=== PATIENT | male | born 1980 | race Caucasian/White ===

== ENCOUNTER 2018-11-10 11:57 | Emergency (ER) | payer OTHER ==
[2018-11-10 12:00] VITALS: BP 139/82; PULSE 82; TEMP 97.3; BMI 35.4
[2018-11-10] MEDS ORDERED: AZITHROMYCIN 250 MG TABLET PO ONE (12:26)
[2018-11-10 12:30] LABS: URINE APPEARANCE CLEAR; URINE BILIRUBIN NEGATIVE (<2.0 mg/dL); URINE COLOR YELLOW; URINE GLUCOSE (UA) NEGATIVE (NEGATIVE); URINE KETONE NEGATIVE (NEGATIVE); URINE LEUK ESTERASE 1+ (NEGATIVE); URINE NITRITE NEGATIVE (NEGATIVE); URINE PROTEIN NEGATIVE (NEGATIVE); URINE UROBILINOGEN NEGATIVE mg/dL (0.2-1.0)
[2018-11-10] MEDS ORDERED: AZITHROMYCIN 250 MG TABLET ONE (12:35)
--- NOTE | 2018-11-10 12:38 | PDOC ---
History of Present Illness - General Chief Complaint: Urinary Problem Stated Complaint: GROIN PAIN Time Seen by Provider: 11/10/18 12:05 History Source: Patient - History of Present Illness Timing/Duration: reports: other Past History - Past Medical History Allergies/Adverse Reactions: Allergies Allergy/AdvReac Type Severity Reaction Status Date / Time No Known Allergies Allergy Verified 11/10/18 12:00 Home Medications: Ambulatory Orders Azithromycin [Zithromax] 250 mg PO DAILY #4 12/03/12 No Home Medications 0 dose .ROUTE UTDICT 12/03/12 COPD: No - Surgical History Appendectomy: Yes - Suicide/Smoking/Psychosocial Hx Smoking Status: No Smoking History: Never smoked Number of Cigarettes Smoked Daily: 0 Review of Systems - Review of Systems Constitutional: No: Chills, Fever : Yes: Burning, Dysuria, Discharge. No: Frequency, Flank Pain, Hematuria, Testicular Mass, Testicular Swelling, Lesions *Physical Exam - Vital Signs Last Vital Signs Temp Pulse Resp BP Pulse Ox 97.3 F L 82 18 139/82 99 11/10/18 11:58 11/10/18 11:58 11/10/18 11:58 11/10/18 11:58 11/10/18 11:58 - Physical Exam General Appearance: Yes: Appropriately Dressed. No: Apparent Distress HEENT: positive: Normal Voice Neck: positive: Supple Respiratory/Chest: negative: Respiratory Distress Gastrointestinal/Abdominal: positive: Soft. negative: Tender Male Genitalia: positive: discharge (minimal clear dc noted at meatus). negative: testicular tenderness, testicular mass, epididymus tender Integumentary: positive: Dry, Warm Neurologic: positive: Fully Oriented, Alert, Normal Mood/Affect Moderate Sedation - Procedure Monitoring Vital Signs: Procedure Monitoring Vital Signs Temperature 97.3 F L 11/10/18 11:58 Pulse Rate 82 11/10/18 11:58 Respiratory Rate 18 11/10/18 11:58 Blood Pressure 139/82 11/10/18 11:58 O2 Sat by Pulse Oximetry (%) 99 11/10/18 11:58 Medical Decision Making - Medical Decision Making 11/10/18 12:46 37-year-old male, here with white penile discharge and dysuria 5-6 days. No testicular pain, swelling, nausea, vomiting, fever or chills. Sexually active with female partner of 4 months. States partner without any complaints at this time. Might have had an STD in the past that was treated, but states he never followed up for that culture result, so not entirely sure if test was positive at the time See exam Urethritis Tx empirically -UA w/ 1+ LE, ucx sent -STD cxs sent -pt to inform partner for testing/tx *DC/Admit/Observation/Transfer Diagnosis at time of Disposition: Urethritis - Discharge Dispostion Disposition: HOME Condition at time of disposition: Good - Referrals - Patient Instructions Printed Discharge Instructions: Urethritis Additional Instructions: We have treated you with medication to cover possible gonorrhea and chlamydia as possible cause of your symptoms. We did test for these and will call you with results in 2-3 days. You can also contact us at [phone]. Please inform partner so they can be tested and treated as well. Refrain from sexual activity for the next week and you can follow up in a free [facility] clinic for retesting to ensure eradication - Post Discharge Activity
[2018-11-10 12:41] LABS: URINE BACTERIA RARE /hpf (NONE SEEN); URINE HYALINE CAST 3 /lpf; URINE MUCUS MANY
== END 2018-11-10 12:50 | disposition home or self-care (01) ==
LOC: JERFT 11:57
DX: N34.2 Other urethritis (principal)
CPT/HCPCS: 36415; 81003; 81015; 87086; 87491; 87591; 96372; 99281-25

== ENCOUNTER 2023-09-19 13:30 | Emergency (ER) | payer OTHER ==
[2023-09-19 13:37] VITALS: BMI 38.4
[2023-09-19 14:39] LABS: PH,URINE 5.5 (5.0-8.0); URINE APPEARANCE CLEAR; URINE BILIRUBIN NEGATIVE (NEGATIVE); URINE COLOR YELLOW; URINE GLUCOSE (UA) NEGATIVE (NEGATIVE); URINE KETONE NEGATIVE (NEGATIVE); URINE LEUK ESTERASE NEGATIVE (NEGATIVE); URINE NITRITE NEGATIVE (NEGATIVE); URINE PROTEIN NEGATIVE (NEGATIVE); URINE UROBILINOGEN 0.2 mg/dL (0.2-1.0)
[2023-09-19] MEDS ORDERED: DOXYCYCLINE HYCLATE 100 MG CAPSULE PO ONE ×2 (15:37→15:48)
[2023-09-19] MEDS ORDERED: LIDOCAINE HCL 1%, 10 MG/ML (20ML VIAL) ONE (15:50)
[2023-09-19] MEDS ORDERED: LIDOCAINE HCL 1%, 10 MG/ML (50 mL VIAL) NR ONE (16:28)
[2023-09-19 16:35] VITALS: BP 138/74; PULSE 78; RESP 16; TEMP 98
== END 2023-09-19 16:35 | disposition home or self-care (01) ==
LOC: JER 13:30
DX: R30.0 Dysuria (principal); Z20.2 Contact with and (suspected) exposure to infections with a predominantly sexual mode of transmission
CPT/HCPCS: 36415; 81003; 87086; 87491; 87591; 87661; 99284-25